=== PATIENT | female | born 1950 | race Caucasian/White ===

== ENCOUNTER 2021-03-28 09:09 | Emergency (ER) | payer MEDICARE ==
[~2021-03-28] VITALS: Ht 152.4 cm; Wt 88.6 kg
[2021-03-28] MEDS ORDERED: CYCLOBENZ5 MG PO (11:23)
[2021-03-28 11:34] VITALS: BP 162/78
== END 2021-03-28 11:34 | disposition home or self-care (01) ==
LOC: ED 09:09
DX: S29.012A Strain of muscle and tendon of back wall of thorax, initial encounter (principal); F17.200 Nicotine dependence, unspecified, uncomplicated; X50.3XXA Overexertion from repetitive movements, initial encounter; Y92.009 Unspecified place in unspecified non-institutional (private) residence as the place of occurrence of the external cause
CPT/HCPCS: J1885; J2360